=== PATIENT | female | born 1935 | race Caucasian/White ===

== ENCOUNTER 2021-11-08 19:17 | Emergency (ER) | payer MEDICARE, MEDICAID | END 2021-11-08 22:19 | disposition home or self-care (01) | LOC: JD.ED 19:17 | DX: K92.2 Gastrointestinal hemorrhage, unspecified (principal); M54.50 Low back pain, unspecified; D64.9 Anemia, unspecified; I25.10 Atherosclerotic heart disease of native coronary artery without angina pectoris; I11.0 Hypertensive heart disease with heart failure; I50.9 Heart failure, unspecified; K21.9 Gastro-esophageal reflux disease without esophagitis; Z88.5 Allergy status to narcotic agent; Z88.8 Allergy status to other drugs, medicaments and biological substances; Z79.01 Long term (current) use of anticoagulants; Z79.899 Other long term (current) drug therapy | CPT/HCPCS: 36415; 81001; 85014; 85018; 99285 ==

== ENCOUNTER 2021-11-09 09:31 | Inpatient (IN) | payer MEDICARE ==
[2021-11-09] MEDS ORDERED: Sodium Chloride 0.9% 10 ML Syringe FLUSH PRN (10:03)
[2021-11-09] MEDS: Sodium Chloride 0.9% 1,000 ML IV SCH ×2 (10:53→18:19)
[2021-11-09] MEDS ORDERED: Factor IX Complex Human 500 UNIT VIAL IV ONE (12:45)
[2021-11-09] MEDS ORDERED: Ondansetron 4 MG/2 ML SDV IVPUSH ONE (12:55)
[2021-11-09] MEDS ORDERED: HYDROmorphone 0.5 MG/0.5 ML Syringe IVPUSH ONE (12:55)
[2021-11-09] MEDS ORDERED: HYDROmorphone 0.5 MG/0.5 ML Syringe IVPUSH PRN (14:19)
[2021-11-09] MEDS ORDERED: Albuterol 0.083% 2.5 MG/3 ML Neb Soln NEB PRN (14:19)
[2021-11-09] MEDS ORDERED: Albuterol/Ipratropium 3.0-0.5 MG/3 ML Neb Soln NEB PRN (14:19)
[2021-11-09] MEDS ORDERED: Ondansetron 4 MG/2 ML SDV IV PRN (14:19)
[2021-11-09] MEDS ORDERED: Methocarbamol 500 MG Tab PO PRN (15:51)
[2021-11-09] MEDS ORDERED: Pantoprazole 40 MG Vial IVPUSH ONE (16:15)
[2021-11-09] MEDS ORDERED: Propofol 200 MG/20 ML SDV ONE (16:25)
[2021-11-09] MEDS ORDERED: Lactated Ringers 1,000 ML ONE (16:33)
[2021-11-09] MEDS ORDERED: Furosemide 20 MG/2 ML VIAL IVPUSH ONE (17:00)
[2021-11-09] MEDS: Insulin Lispro 100 Unit/ML 3 ML KwikPen SUBCUT SCH ×2 (18:07→22:24)
[2021-11-09] MEDS ORDERED: Pantoprazole 40 MG Vial IVPUSH SCH (21:00)
[2021-11-09] MEDS: Methocarbamol 500 MG Tab PO SCH (21:16)
[2021-11-09] MEDS: Gabapentin 300 MG Cap PO SCH (21:16)
[2021-11-09] MEDS: Nystatin Topical Powder 15 GM Bottle TOP SCH (21:16)
[2021-11-09] MEDS: QUEtiapine 25 MG Tab PO SCH (21:16)
[2021-11-10 00:32] LABS: HEMOGLOBIN A1C 6.7 %
[2021-11-10] MEDS: Levothyroxine 25 MCG Tab PO SCH (07:26)
[2021-11-10] MEDS: Insulin Lispro 100 Unit/ML 3 ML KwikPen SUBCUT SCH ×4 (08:32→21:57)
[2021-11-10] MEDS: Gabapentin 300 MG Cap PO SCH ×3 (08:34→20:29)
[2021-11-10] MEDS: Metoprolol Succinate 50 MG Tab.ER PO SCH (08:34)
[2021-11-10] MEDS: Methocarbamol 500 MG Tab PO SCH ×2 (08:34→20:29)
[2021-11-10] MEDS: QUEtiapine 25 MG Tab PO SCH ×2 (08:34→20:29)
[2021-11-10] MEDS: DULoxetine 30 MG Cap PO SCH (08:36)
[2021-11-10] MEDS: Furosemide 20 MG Tab PO SCH (08:36)
[2021-11-10] MEDS: Nystatin Topical Powder 15 GM Bottle TOP SCH ×2 (08:37→20:29)
[2021-11-10] MEDS: Pantoprazole 40 MG Tab.CR PO SCH (08:40)
[2021-11-10] MEDS ORDERED: fentaNYL 12 MCG/HR Transdermal Patch TRDERM SCH (09:00)
[2021-11-10] MEDS ORDERED: Pantoprazole 40 MG Vial IVPUSH SCH (09:00)
[2021-11-10] MEDS: fentaNYL 12 MCG/HR Transdermal Patch TRDERM SCH (10:11)
[2021-11-10] MEDS ORDERED: Furosemide 20 MG/2 ML VIAL IVPUSH ONE (15:00)
[2021-11-10] MEDS: Acetaminophen 325 MG Tab PO PRN (17:12)
[2021-11-11] MEDS: Levothyroxine 25 MCG Tab PO SCH (06:18)
[2021-11-11] MEDS: Pantoprazole 40 MG Tab.CR PO SCH (06:20)
[2021-11-11] MEDS: Insulin Lispro 100 Unit/ML 3 ML KwikPen SUBCUT SCH ×4 (07:47→21:01)
[2021-11-11] MEDS: Methocarbamol 500 MG Tab PO SCH ×2 (08:04→20:00)
[2021-11-11] MEDS: Gabapentin 300 MG Cap PO SCH ×3 (08:05→20:00)
[2021-11-11] MEDS: DULoxetine 30 MG Cap PO SCH (08:05)
[2021-11-11] MEDS: Furosemide 20 MG Tab PO SCH (08:05)
[2021-11-11] MEDS: Metoprolol Succinate 50 MG Tab.ER PO SCH (08:05)
[2021-11-11] MEDS: QUEtiapine 25 MG Tab PO SCH ×2 (08:05→20:00)
[2021-11-11] MEDS: Nystatin Topical Powder 15 GM Bottle TOP SCH ×2 (08:06→20:00)
[2021-11-11] MEDS ORDERED: Polyethylene Glycol/Electrolytes 4,000 ML Bottle PO ONE (14:50)
[2021-11-11] MEDS: Acetaminophen 325 MG Tab PO PRN (18:14)
[2021-11-12] MEDS: Pantoprazole 40 MG Tab.CR PO SCH ×2 (05:22→08:05)
[2021-11-12] MEDS: Levothyroxine 25 MCG Tab PO SCH ×2 (05:22→08:05)
[2021-11-12] MEDS: Insulin Lispro 100 Unit/ML 3 ML KwikPen SUBCUT SCH ×4 (08:04→22:00)
[2021-11-12] MEDS: Gabapentin 300 MG Cap PO SCH ×3 (09:57→22:36)
[2021-11-12] MEDS: DULoxetine 30 MG Cap PO SCH (09:57)
[2021-11-12] MEDS: Methocarbamol 500 MG Tab PO SCH ×2 (09:57→22:37)
[2021-11-12] MEDS: Nystatin Topical Powder 15 GM Bottle TOP SCH ×2 (09:58→22:38)
[2021-11-12] MEDS: QUEtiapine 25 MG Tab PO SCH ×2 (09:59→22:37)
[2021-11-12] MEDS: Furosemide 20 MG Tab PO SCH (09:59)
[2021-11-12] MEDS: Metoprolol Succinate 50 MG Tab.ER PO SCH (09:59)
[2021-11-12] MEDS ORDERED: fentaNYL 100 MCG/2 ML SDV ONE (15:30)
[2021-11-12] MEDS ORDERED: Propofol 200 MG/20 ML SDV ONE ×2 (15:30→15:55)
[2021-11-12] MEDS ORDERED: Lidocaine 1% 4 ML ONE (15:34)
[2021-11-12] MEDS ORDERED: Bupivacaine 0.5% 30 ML SDV ONE (15:55)
[2021-11-12] MEDS ORDERED: Lactated Ringers 1,000 ML ONE (16:05)
[2021-11-13] MEDS: Levothyroxine 25 MCG Tab PO SCH (07:00)
[2021-11-13] MEDS: Pantoprazole 40 MG Tab.CR PO SCH (07:00)
[2021-11-13] MEDS: Insulin Lispro 100 Unit/ML 3 ML KwikPen SUBCUT SCH ×4 (07:12→21:25)
[2021-11-13] MEDS: Metoprolol Succinate 50 MG Tab.ER PO SCH (08:50)
[2021-11-13] MEDS: Gabapentin 300 MG Cap PO SCH ×3 (08:50→21:24)
[2021-11-13] MEDS: Methocarbamol 500 MG Tab PO SCH ×2 (08:53→21:24)
[2021-11-13] MEDS: Furosemide 20 MG Tab PO SCH (08:53)
[2021-11-13] MEDS: Nystatin Topical Powder 15 GM Bottle TOP SCH ×2 (08:53→21:26)
[2021-11-13] MEDS: QUEtiapine 25 MG Tab PO SCH ×2 (08:54→21:24)
[2021-11-13] MEDS: DULoxetine 30 MG Cap PO SCH (08:54)
[2021-11-13] MEDS: fentaNYL 12 MCG/HR Transdermal Patch TRDERM SCH (09:00)
[2021-11-14] MEDS: Insulin Lispro 100 Unit/ML 3 ML KwikPen SUBCUT SCH (06:16)
[2021-11-14] MEDS: Levothyroxine 25 MCG Tab PO SCH (06:17)
[2021-11-14] MEDS: Pantoprazole 40 MG Tab.CR PO SCH (06:17)
[2021-11-14] MEDS: Furosemide 20 MG Tab PO SCH (08:25)
[2021-11-14] MEDS: DULoxetine 30 MG Cap PO SCH (08:25)
[2021-11-14] MEDS: Gabapentin 300 MG Cap PO SCH (08:25)
[2021-11-14] MEDS: Methocarbamol 500 MG Tab PO SCH (08:25)
[2021-11-14] MEDS: Nystatin Topical Powder 15 GM Bottle TOP SCH (08:26)
[2021-11-14] MEDS: QUEtiapine 25 MG Tab PO SCH (08:26)
[2021-11-14] MEDS: Metoprolol Succinate 50 MG Tab.ER PO SCH (08:26)
== END 2021-11-14 15:45 | disposition home or self-care (01) | DRG 813 ==
LOC: JD.ED 09:31 → JD.ICU 12:43
PROVIDERS: ADMIT Emergency Medicine; ATTEND Family Medicine
PROC: 0DJ08ZZ Inspection of Upper Intestinal Tract, Via Natural or Artificial Opening Endoscopic (ICD-10-PCS; principal; 2021-11-09)
PROC: 30233N1 Transfusion of Nonautologous Red Blood Cells into Peripheral Vein, Percutaneous Approach (ICD-10-PCS; 2021-11-09)
PROC: 0DJD8ZZ Inspection of Lower Intestinal Tract, Via Natural or Artificial Opening Endoscopic (ICD-10-PCS; 2021-11-12)
DX: K92.1 Melena (principal); H35.30 Unspecified macular degeneration; D68.32 Hemorrhagic disorder due to extrinsic circulating anticoagulants; D62 Acute posthemorrhagic anemia; K57.30 Diverticulosis of large intestine without perforation or abscess without bleeding; D64.9 Anemia, unspecified; I11.0 Hypertensive heart disease with heart failure; I50.9 Heart failure, unspecified; M54.9 Dorsalgia, unspecified; G89.29 Other chronic pain; E03.9 Hypothyroidism, unspecified; N32.81 Overactive bladder; Z66 Do not resuscitate; Z20.822 Contact with and (suspected) exposure to COVID-19; K63.5 Polyp of colon; M54.50 Low back pain, unspecified; R41.3 Other amnesia; I44.7 Left bundle-branch block, unspecified; F03.90 Unspecified dementia, unspecified severity, without behavioral disturbance, psychotic disturbance, mood disturbance, and anxiety; Z88.5 Allergy status to narcotic agent; Z79.899 Other long term (current) drug therapy; Z86.718 Personal history of other venous thrombosis and embolism; Z79.01 Long term (current) use of anticoagulants; Z99.81 Dependence on supplemental oxygen; Z86.711 Personal history of pulmonary embolism; Z79.890 Hormone replacement therapy; Z88.8 Allergy status to other drugs, medicaments and biological substances
CPT/HCPCS: 36415; 80053; 85025; 85610; 86850; 86900; 86901; 86922; 93005; 96374; 99285; J7030; U0002; 00731; 00812; 36430; 80048; 82947; 83036; 83735; 85014; 85018; 85027; 93010; 97116-GP; 97161-GP; 99100; 99140; A9270-GY; C9113; J1170; J1815; J1940; J2405; J2704; J3010; J3490; J7120; J7168; P9016

== ENCOUNTER 2021-12-15 15:30 | Inpatient (IN) | payer MEDICARE ==
[2021-12-15] MEDS ORDERED: Sodium Chloride 0.9% 10 ML Syringe FLUSH PRN (15:52)
[2021-12-15] MEDS ORDERED: Ondansetron 4 MG/2 ML SDV IVPUSH ONE (15:52)
[2021-12-15] MEDS ORDERED: Sodium Chloride 0.9% 1,000 ML IV SCH (16:00)
[2021-12-15] MEDS ORDERED: REMDESIVIR 200 MG in Sodium Chloride 0.9% 250 ML IV ONE (19:18)
[2021-12-15] MEDS ORDERED: LORazepam 0.5 MG Tab PO PRN (19:29)
[2021-12-15] MEDS ORDERED: Polyethylene Glycol 3350 Powder 17 GM Packet PO SCH (19:30)
[2021-12-15] MEDS: Dexamethasone 4 MG Tab PO SCH (19:47)
[2021-12-15] MEDS ORDERED: Warfarin 2.5 MG Tab PO ONE (20:00)
[2021-12-15] MEDS: Methocarbamol 500 MG Tab PO SCH (21:38)
[2021-12-15] MEDS: Gabapentin 300 MG Cap PO SCH (21:38)
[2021-12-15] MEDS: QUEtiapine 25 MG Tab PO SCH (21:38)
[2021-12-15] MEDS: fentaNYL 12 MCG/HR Transdermal Patch TRDERM SCH (21:49)
[2021-12-16] MEDS ORDERED: Polyethylene Glycol 3350 Powder 17 GM Packet PO PRN (05:33)
[2021-12-16] MEDS: Levothyroxine 25 MCG Tab PO SCH (05:47)
[2021-12-16] MEDS: Pantoprazole 40 MG Tab.CR PO SCH (05:47)
[2021-12-16] MEDS ORDERED: Sodium Chloride 0.9% 1,000 ML IV SCH (07:45)
[2021-12-16] MEDS: Docusate Sodium 100 MG Cap PO SCH (09:58)
[2021-12-16] MEDS: Metoprolol Succinate 50 MG Tab.ER PO SCH (09:59)
[2021-12-16] MEDS: Dexamethasone 4 MG Tab PO SCH (10:00)
[2021-12-16] MEDS: DULoxetine 30 MG Cap PO SCH (10:00)
[2021-12-16] MEDS: Methocarbamol 500 MG Tab PO SCH ×3 (10:01→21:39)
[2021-12-16] MEDS: Ferrous Sulfate 324 MG Tab.EC PO SCH (10:01)
[2021-12-16] MEDS: QUEtiapine 25 MG Tab PO SCH ×3 (10:01→21:39)
[2021-12-16] MEDS: Gabapentin 300 MG Cap PO SCH ×3 (10:01→21:39)
[2021-12-16] MEDS: Acetaminophen 325 MG Tab PO PRN (11:15)
[2021-12-16] MEDS: Insulin Lispro 100 Unit/ML 3 ML KwikPen SUBCUT SCH ×2 (17:36→21:33)
[2021-12-16] MEDS ORDERED: Warfarin 2.5 MG Tab PO SCH (18:00)
[2021-12-16] MEDS ORDERED: Warfarin 2.5 MG Tab PO ONE (18:30)
[2021-12-16] MEDS: REMDESIVIR 100 MG in Sodium Chloride 0.9% 250 ML IV SCH (19:49)
[2021-12-17] MEDS: Levothyroxine 25 MCG Tab PO SCH (05:22)
[2021-12-17] MEDS: Pantoprazole 40 MG Tab.CR PO SCH (05:22)
[2021-12-17] MEDS: DULoxetine 30 MG Cap PO SCH (08:28)
[2021-12-17] MEDS: QUEtiapine 25 MG Tab PO SCH ×2 (08:28→20:48)
[2021-12-17] MEDS: Insulin Lispro 100 Unit/ML 3 ML KwikPen SUBCUT SCH ×4 (08:28→20:47)
[2021-12-17] MEDS: Metoprolol Succinate 50 MG Tab.ER PO SCH (08:33)
[2021-12-17] MEDS: Dexamethasone 4 MG Tab PO SCH (08:34)
[2021-12-17] MEDS: Methocarbamol 500 MG Tab PO SCH ×2 (08:34→20:48)
[2021-12-17] MEDS: Gabapentin 300 MG Cap PO SCH ×2 (08:35→20:48)
[2021-12-17] MEDS: Docusate Sodium 100 MG Cap PO SCH (08:35)
[2021-12-17] MEDS: Ferrous Sulfate 324 MG Tab.EC PO SCH (10:00)
[2021-12-17] MEDS ORDERED: Warfarin 2.5 MG Tab PO SCH (18:00)
[2021-12-17] MEDS ORDERED: Warfarin 5 MG Tab PO SCH (18:00)
[2021-12-17] MEDS: REMDESIVIR 100 MG in Sodium Chloride 0.9% 250 ML IV SCH (21:02)
[2021-12-18] MEDS: Levothyroxine 25 MCG Tab PO SCH (06:25)
[2021-12-18] MEDS: Pantoprazole 40 MG Tab.CR PO SCH (06:26)
[2021-12-18] MEDS: Metoprolol Succinate 50 MG Tab.ER PO SCH (09:13)
[2021-12-18] MEDS: Docusate Sodium 100 MG Cap PO SCH (09:14)
[2021-12-18] MEDS: Methocarbamol 500 MG Tab PO SCH ×2 (09:14→20:55)
[2021-12-18] MEDS: Gabapentin 300 MG Cap PO SCH ×2 (09:14→20:56)
[2021-12-18] MEDS: Dexamethasone 4 MG Tab PO SCH (09:14)
[2021-12-18] MEDS: QUEtiapine 25 MG Tab PO SCH ×2 (09:15→20:55)
[2021-12-18] MEDS: DULoxetine 30 MG Cap PO SCH (09:15)
[2021-12-18] MEDS: Insulin Lispro 100 Unit/ML 3 ML KwikPen SUBCUT SCH ×4 (09:15→20:57)
[2021-12-18] MEDS: Ferrous Sulfate 324 MG Tab.EC PO SCH (10:09)
[2021-12-18] MEDS: Acetaminophen 325 MG Tab PO PRN (13:37)
[2021-12-18] MEDS ORDERED: Warfarin 5 MG Tab PO SCH (18:00)
[2021-12-18] MEDS: fentaNYL 12 MCG/HR Transdermal Patch TRDERM SCH (20:56)
[2021-12-18] MEDS: REMDESIVIR 100 MG in Sodium Chloride 0.9% 250 ML IV SCH (20:58)
[2021-12-19] MEDS: Pantoprazole 40 MG Tab.CR PO SCH (06:08)
[2021-12-19] MEDS: Levothyroxine 25 MCG Tab PO SCH (06:08)
[2021-12-19] MEDS: Methocarbamol 500 MG Tab PO SCH ×2 (08:08→20:49)
[2021-12-19] MEDS: QUEtiapine 25 MG Tab PO SCH ×2 (08:08→20:49)
[2021-12-19] MEDS: Docusate Sodium 100 MG Cap PO SCH (08:08)
[2021-12-19] MEDS: Dexamethasone 4 MG Tab PO SCH (08:08)
[2021-12-19] MEDS: DULoxetine 30 MG Cap PO SCH (08:08)
[2021-12-19] MEDS: Gabapentin 300 MG Cap PO SCH ×2 (08:08→20:49)
[2021-12-19] MEDS: Metoprolol Succinate 50 MG Tab.ER PO SCH (08:09)
[2021-12-19] MEDS: Insulin Lispro 100 Unit/ML 3 ML KwikPen SUBCUT SCH ×4 (08:09→21:00)
[2021-12-19] MEDS: Tiotropium Bromide 4 GM Inhalation Spray (2.5mcg/1 dose; 10 doses) INH SCH (09:22)
[2021-12-19] MEDS: Ferrous Sulfate 324 MG Tab.EC PO SCH (12:24)
[2021-12-19] MEDS: Acetaminophen 325 MG Tab PO PRN (17:54)
[2021-12-19] MEDS ORDERED: Warfarin 2.5 MG Tab PO SCH (18:00)
[2021-12-19] MEDS ORDERED: Magnesium Hydroxide 400 MG/5 ML Susp 30 ML Cup PO PRN (19:56)
[2021-12-19] MEDS: REMDESIVIR 100 MG in Sodium Chloride 0.9% 250 ML IV SCH ×2 (20:43→22:32)
[2021-12-20] MEDS: Pantoprazole 40 MG Tab.CR PO SCH (06:33)
[2021-12-20] MEDS: Insulin Lispro 100 Unit/ML 3 ML KwikPen SUBCUT SCH ×2 (06:33→12:03)
[2021-12-20] MEDS: Levothyroxine 25 MCG Tab PO SCH (06:33)
[2021-12-20] MEDS: Tiotropium Bromide 4 GM Inhalation Spray (2.5mcg/1 dose; 10 doses) INH SCH (08:40)
[2021-12-20] MEDS: QUEtiapine 25 MG Tab PO SCH (08:47)
[2021-12-20] MEDS: Docusate Sodium 100 MG Cap PO SCH (08:47)
[2021-12-20] MEDS: Gabapentin 300 MG Cap PO SCH (08:47)
[2021-12-20] MEDS: DULoxetine 30 MG Cap PO SCH (08:47)
[2021-12-20] MEDS: Methocarbamol 500 MG Tab PO SCH (08:47)
[2021-12-20] MEDS: Ferrous Sulfate 324 MG Tab.EC PO SCH (12:06)
[2021-12-20] MEDS ORDERED: Warfarin 2.5 MG Tab PO SCH (18:00)
== END 2021-12-20 14:28 | DRG 178 ==
LOC: JD.ED 15:30 → JD.MS 19:05
PROVIDERS: ADMIT Internal Medicine; ATTEND Internal Medicine
PROC: XW033E5 Introduction of Remdesivir Anti-infective into Peripheral Vein, Percutaneous Approach, New Technology Group 5 (ICD-10-PCS; principal; 2021-12-15)
PROC: 3E0DX3Z Introduction of Anti-inflammatory into Mouth and Pharynx, External Approach (ICD-10-PCS; 2021-12-15)
PROC: 8E0ZXY6 Isolation (ICD-10-PCS; 2021-12-15)
DX: N28.9 Disorder of kidney and ureter, unspecified (principal); U07.1 COVID-19; N17.9 Acute kidney failure, unspecified; E46 Unspecified protein-calorie malnutrition; K92.1 Melena; D64.9 Anemia, unspecified; E03.9 Hypothyroidism, unspecified; G89.29 Other chronic pain; F03.90 Unspecified dementia, unspecified severity, without behavioral disturbance, psychotic disturbance, mood disturbance, and anxiety; I95.89 Other hypotension; Z66 Do not resuscitate; I50.9 Heart failure, unspecified; M54.50 Low back pain, unspecified; E86.0 Dehydration; H35.30 Unspecified macular degeneration; I11.0 Hypertensive heart disease with heart failure; I44.7 Left bundle-branch block, unspecified; N32.81 Overactive bladder; M54.9 Dorsalgia, unspecified; Z88.6 Allergy status to analgesic agent; Z99.81 Dependence on supplemental oxygen; Z88.5 Allergy status to narcotic agent; Z79.890 Hormone replacement therapy; Z79.01 Long term (current) use of anticoagulants; Z79.899 Other long term (current) drug therapy; Z68.38 Body mass index [BMI] 38.0-38.9, adult; Z86.718 Personal history of other venous thrombosis and embolism; Z88.8 Allergy status to other drugs, medicaments and biological substances
CPT/HCPCS: 36415; 71045; 80053; 81001; 83605; 83735; 84484; 85025; 85610; 85730; 86140; 86850; 86900; 86901; 87040 ×2; 93005; 96374; 99285; J2405; J7030; U0002; 80048; 82728; 82947; 83540; 83880; 85027; 87641; 93010; 94640; 94762; 97110-GP; 97116-GP; 97162-GP; 97530-GP; A9270-GY; J1815; J2916; J3490; J7050; J8540

== ENCOUNTER 2021-12-24 11:28 | Emergency (ER) | payer MEDICARE | END 2021-12-24 15:41 | disposition home or self-care (01) | LOC: JD.ED 11:28 | DX: S52.615A Nondisplaced fracture of left ulna styloid process, initial encounter for closed fracture (principal); I11.0 Hypertensive heart disease with heart failure; I50.9 Heart failure, unspecified; E03.9 Hypothyroidism, unspecified; E66.9 Obesity, unspecified; Z68.35 Body mass index [BMI] 35.0-35.9, adult; Z79.01 Long term (current) use of anticoagulants; Z79.899 Other long term (current) drug therapy; Z88.5 Allergy status to narcotic agent; Z88.8 Allergy status to other drugs, medicaments and biological substances; W19.XXXA Unspecified fall, initial encounter | CPT/HCPCS: 29125; 36415; 73110-26-LT; 73110-LT; 73130-26-LT; 73130-LT; 85025; 85610; 99283-25 ==

== ENCOUNTER 2022-12-25 12:13 | Inpatient (IN) | payer MEDICARE, OTHER, MEDICAID ==
[2022-12-25] MEDS ORDERED: Sodium Chloride 0.9% 10 ML Syringe FLUSH PRN (12:16)
[2022-12-25] MEDS ORDERED: HYDROmorphone 0.5 MG/0.5 ML Syringe IVPUSH ONE (12:16)
[2022-12-25] MEDS ORDERED: HYDROmorphone 0.5 MG/0.5 ML Syringe IM ONE (12:30)
[2022-12-25] MEDS ORDERED: Ondansetron 4 MG Tab.DIS PO PRN (15:18)
[2022-12-25] MEDS ORDERED: Ondansetron 4 MG/2 ML SDV IV PRN (15:18)
[2022-12-25] MEDS: Acetaminophen/HYDROcodone 325-5 MG Tab PO PRN ×2 (17:32→22:12)
[2022-12-25] MEDS: HYDROmorphone 0.5 MG/0.5 ML Syringe IVPUSH PRN (20:35)
[2022-12-26] MEDS: HYDROmorphone 0.5 MG/0.5 ML Syringe IVPUSH PRN ×6 (03:31→22:10)
[2022-12-26] MEDS ORDERED: HYDROmorphone 1 MG/ML Syringe ONE (11:40)
[2022-12-26] MEDS ORDERED: Lactulose Soln 10 GM/15 ML 30 ML UD Cup PO PRN (15:08)
[2022-12-26] MEDS: Acetaminophen/HYDROcodone 325-5 MG Tab PO PRN ×2 (18:13→23:41)
[2022-12-26] MEDS: QUEtiapine 25 MG Tab PO SCH (20:03)
[2022-12-26] MEDS: Gabapentin 300 MG Cap PO SCH (20:03)
[2022-12-26] MEDS: Fish Oil/Omega-3 Fatty Acids 1 Gm Cap PO SCH (20:03)
[2022-12-27] MEDS: Levothyroxine 25 MCG Tab PO SCH (05:39)
[2022-12-27] MEDS: HYDROmorphone 0.5 MG/0.5 ML Syringe IVPUSH PRN ×3 (05:39→15:29)
[2022-12-27] MEDS: Pantoprazole 40 MG Tab.CR PO SCH (05:39)
[2022-12-27] MEDS ORDERED: Mirabegron 25 MG Tab.Er PO SCH (09:00)
[2022-12-27] MEDS: Metoprolol Succinate 50 MG Tab.ER PO SCH (09:31)
[2022-12-27] MEDS ORDERED: Bupivacaine 0.25% 10 ML SDV ONE (10:03)
[2022-12-27] MEDS: Sodium Chloride 0.9% 10 ML Syringe FLUSH PRN ×2 (10:25→15:30)
[2022-12-27] MEDS ORDERED: Propofol 200 MG/20 ML SDV ONE (10:30)
[2022-12-27] MEDS ORDERED: fentaNYL 100 MCG/2 ML SDV ONE (10:30)
[2022-12-27] MEDS ORDERED: Lidocaine 1% 5 ML VIAL ONE (10:36)
[2022-12-27] MEDS ORDERED: Rocuronium 50 MG/5 ML Vial ONE (10:38)
[2022-12-27] MEDS ORDERED: Lactated Ringers 1,000 ML IV ONE (11:00)
[2022-12-27] MEDS ORDERED: Dexamethasone 4 MG/ML 5 ML MDV ONE (11:45)
[2022-12-27] MEDS ORDERED: ceFAZolin 2 GM Vial ONE (11:48)
[2022-12-27] MEDS ORDERED: Sugammadex Sodium 200 MG/2 ML VIAL ONE (12:13)
[2022-12-27] MEDS ORDERED: Ondansetron 4 MG/2 ML SDV ONE (12:31)
[2022-12-27] MEDS ORDERED: Ondansetron 4 MG/2 ML SDV IVPUSH PRN (12:45)
[2022-12-27] MEDS ORDERED: HYDROmorphone 0.5 MG/0.5 ML Syringe IVPUSH PRN (12:45)
[2022-12-27] MEDS ORDERED: fentaNYL 100 MCG/2 ML SDV IVPUSH PRN (12:45)
[2022-12-27] MEDS: Acetaminophen 325 MG Tab PO PRN (14:33)
[2022-12-27] MEDS: Gabapentin 300 MG Cap PO SCH ×3 (14:34→20:43)
[2022-12-27] MEDS: Lisinopril 20 MG Tab PO SCH (14:58)
[2022-12-27] MEDS: DULoxetine 30 MG Cap PO SCH (15:00)
[2022-12-27] MEDS: QUEtiapine 25 MG Tab PO SCH ×2 (15:06→20:43)
[2022-12-27] MEDS: Fish Oil/Omega-3 Fatty Acids 1 Gm Cap PO SCH ×2 (15:06→20:43)
[2022-12-27] MEDS: Ferrous Sulfate 324 MG Tab.EC PO SCH (15:07)
[2022-12-27] MEDS: Furosemide 20 MG Tab PO SCH (15:33)
[2022-12-27] MEDS: Acetaminophen/HYDROcodone 325-5 MG Tab PO PRN (20:44)
[2022-12-28] MEDS: Acetaminophen/HYDROcodone 325-5 MG Tab PO PRN (03:51)
[2022-12-28] MEDS: Pantoprazole 40 MG Tab.CR PO SCH (06:24)
[2022-12-28] MEDS: Levothyroxine 25 MCG Tab PO SCH (06:24)
[2022-12-28] MEDS ORDERED: Enoxaparin 100 MG/1 ML Syringe SUBCUT SCH (08:00)
[2022-12-28] MEDS: Sodium Chloride 0.9% 1,000 ML IV SCH (08:37)
[2022-12-28] MEDS: DULoxetine 30 MG Cap PO SCH (09:10)
[2022-12-28] MEDS: Fish Oil/Omega-3 Fatty Acids 1 Gm Cap PO SCH ×2 (09:11→20:18)
[2022-12-28] MEDS: QUEtiapine 25 MG Tab PO SCH ×2 (09:15→20:18)
[2022-12-28] MEDS: Ferrous Sulfate 324 MG Tab.EC PO SCH (09:15)
[2022-12-28] MEDS: Lisinopril 20 MG Tab PO SCH (09:15)
[2022-12-28] MEDS: Gabapentin 300 MG Cap PO SCH ×3 (09:15→20:18)
[2022-12-28] MEDS: Metoprolol Succinate 50 MG Tab.ER PO SCH (09:15)
[2022-12-28] MEDS: Furosemide 20 MG Tab PO SCH (09:15)
[2022-12-28] MEDS: Acetaminophen 325 MG Tab PO PRN ×3 (10:51→22:46)
[2022-12-28] MEDS: Enoxaparin 100 MG/1 ML Syringe SUBCUT SCH (12:36)
[2022-12-28] MEDS: Warfarin 5 MG Tab PO SCH (18:18)
[2022-12-28] MEDS: MYRBETRIQ 50 MG PO SCH (18:59)
[2022-12-28] MEDS: Docusate Sodium 100 MG Cap PO PRN (20:18)
[2022-12-29] MEDS: Acetaminophen 325 MG Tab PO PRN ×3 (03:24→20:52)
[2022-12-29] MEDS: Sodium Chloride 0.9% 1,000 ML IV SCH ×2 (03:25→08:40)
[2022-12-29] MEDS: Levothyroxine 25 MCG Tab PO SCH (07:06)
[2022-12-29] MEDS: Pantoprazole 40 MG Tab.CR PO SCH (07:06)
[2022-12-29] MEDS: DULoxetine 30 MG Cap PO SCH (08:19)
[2022-12-29] MEDS: Metoprolol Succinate 50 MG Tab.ER PO SCH (08:19)
[2022-12-29] MEDS: Furosemide 20 MG Tab PO SCH (08:19)
[2022-12-29] MEDS: Gabapentin 300 MG Cap PO SCH ×3 (08:19→20:53)
[2022-12-29] MEDS: Fish Oil/Omega-3 Fatty Acids 1 Gm Cap PO SCH ×2 (08:20→20:52)
[2022-12-29] MEDS: QUEtiapine 25 MG Tab PO SCH ×2 (08:20→20:52)
[2022-12-29] MEDS: Lisinopril 20 MG Tab PO SCH (08:20)
[2022-12-29] MEDS: Ferrous Sulfate 324 MG Tab.EC PO SCH (08:20)
[2022-12-29] MEDS: MYRBETRIQ 50 MG PO SCH (08:21)
[2022-12-29] MEDS: HYDROmorphone 0.5 MG/0.5 ML Syringe IVPUSH PRN ×2 (08:40→16:05)
[2022-12-29] MEDS: Acetaminophen/HYDROcodone 325-5 MG Tab PO PRN ×2 (09:15→23:26)
[2022-12-29] MEDS: Enoxaparin 100 MG/1 ML Syringe SUBCUT SCH (12:34)
[2022-12-29] MEDS: Warfarin 5 MG Tab PO SCH (17:25)
[2022-12-29] MEDS: Docusate Sodium 100 MG Cap PO PRN (23:26)
[2022-12-30] MEDS: Acetaminophen 325 MG Tab PO PRN (04:35)
[2022-12-30] MEDS: Levothyroxine 25 MCG Tab PO SCH ×2 (04:39→06:13)
[2022-12-30] MEDS: Pantoprazole 40 MG Tab.CR PO SCH ×2 (04:39→06:13)
[2022-12-30] MEDS: Lisinopril 20 MG Tab PO SCH (09:01)
[2022-12-30] MEDS: DULoxetine 30 MG Cap PO SCH (09:01)
[2022-12-30] MEDS: Metoprolol Succinate 50 MG Tab.ER PO SCH (09:01)
[2022-12-30] MEDS: Gabapentin 300 MG Cap PO SCH (09:02)
[2022-12-30] MEDS: Acetaminophen/HYDROcodone 325-5 MG Tab PO PRN (09:02)
[2022-12-30] MEDS: Furosemide 20 MG Tab PO SCH (09:03)
[2022-12-30] MEDS: Ferrous Sulfate 324 MG Tab.EC PO SCH (09:03)
[2022-12-30] MEDS: QUEtiapine 25 MG Tab PO SCH (09:03)
[2022-12-30] MEDS: Fish Oil/Omega-3 Fatty Acids 1 Gm Cap PO SCH (09:04)
[2022-12-30] MEDS: MYRBETRIQ 50 MG PO SCH (09:18)
[2022-12-30] MEDS ORDERED: Enoxaparin 100 MG/1 ML Syringe SUBCUT SCH (09:45)
== END 2022-12-30 13:46 | DRG 481 ==
LOC: JD.ED 12:13 → JD.MS 14:04
PROVIDERS: ADMIT Hospitalist; ATTEND Hospitalist
PROC: 0QS604Z Reposition Right Upper Femur with Internal Fixation Device, Open Approach (ICD-10-PCS; principal; 2022-12-26)
DX: S72.141A Displaced intertrochanteric fracture of right femur, initial encounter for closed fracture (principal); I13.0 Hypertensive heart and chronic kidney disease with heart failure and stage 1 through stage 4 chronic kidney disease, or unspecified chronic kidney disease; N18.30 Chronic kidney disease, stage 3 unspecified; Z66 Do not resuscitate; I50.9 Heart failure, unspecified; G89.29 Other chronic pain; M54.9 Dorsalgia, unspecified; N32.81 Overactive bladder; E03.9 Hypothyroidism, unspecified; E11.22 Type 2 diabetes mellitus with diabetic chronic kidney disease; H35.30 Unspecified macular degeneration; E66.9 Obesity, unspecified; D64.9 Anemia, unspecified; F03.90 Unspecified dementia, unspecified severity, without behavioral disturbance, psychotic disturbance, mood disturbance, and anxiety; W18.30XA Fall on same level, unspecified, initial encounter; Y92.89 Other specified places as the place of occurrence of the external cause; Z79.01 Long term (current) use of anticoagulants; Z88.8 Allergy status to other drugs, medicaments and biological substances; Z88.5 Allergy status to narcotic agent; Z86.718 Personal history of other venous thrombosis and embolism; Z79.899 Other long term (current) drug therapy; Z86.711 Personal history of pulmonary embolism; Z68.39 Body mass index [BMI] 39.0-39.9, adult
CPT/HCPCS: 01210; 36410; 36415; 51701; 51702; 70450; 70450-26; 71045; 71045-26; 73502-26-RT; 73502-RT; 76000; 76000-26; 80048; 80053; 85025; 85610; 86850; 86900; 86901; 87340; 87641; 93005; 93010; 94760; 96372; 97110-GP; 97162-GP; 97530-GP; 99100; 99221; 99231; 99239; 99285; A9270-GY; C1713; C1776; J0690; J1100; J1170; J1650; J2405; J2704; J3010; J3490; J7030; J7120; U0002

== ENCOUNTER 2023-05-12 17:24 | Emergency (ER) | payer MEDICARE, MEDICAID ==
[2023-05-12] MEDS ORDERED: Sodium Chloride 0.9% 10 ML Syringe FLUSH PRN (18:24)
[2023-05-12] MEDS ORDERED: Ondansetron 4 MG/2 ML SDV IVPUSH ONE (18:25)
[2023-05-12] MEDS ORDERED: Sodium Chloride 0.9% 1,000 ML IV STA (18:25)
[2023-05-12 19:22] LABS: BASOPHILS ABSOLUTE AUTO 0.02 K/mm3 (0.01-0.08); BASOPHILS PERCENT AUTO 0.2 % (0.1-1.2); HEMATOCRIT 46.3 % (34.1-44.9); HEMOGLOBIN 14.5 gm/dl (11.2-15.7); IMMATURE GRAN ABSOLUTE AUTO 0.02 K/mm3 (0.00-0.10); IMMATURE GRAN PERCENT AUTO 0.2 % (<=1.0); LYMPHOCYTES ABSOLUTE AUTO 2.81 K/mm3 (1.18-3.74); LYMPHOCYTES PERCENT AUTO 28.8 % (19.3-51.7); MEAN CORPUSCULAR HEMOGLOBIN 28.9 pg (25.6-32.2); MEAN CORPUSCULAR HGB CONC 31.3 g/dl (32.2-35.5); MEAN CORPUSCULAR VOLUME 92.4 fl (79.4-94.8); MEAN PLATELET VOLUME 12.2 fl (9.4-12.3); MONOCYTES ABSOLUTE AUTO 1.12 K/mm3 (0.24-0.36); MONOCYTES PERCENT AUTO 11.5 % (4.7-12.5); NEUTROPHILS ABSOLUTE AUTO 5.68 K/mm3 (1.56-6.13); NEUTROPHILS PERCENT AUTO 58.3 % (34.0-71.1); PLATELET COUNT,PLT 148 K/mm3 (182-369); RED BLOOD CELL COUNT 5.01 M/mm3 (3.98-5.22); WHITE BLOOD CELL COUNT,WBC 9.75 K/mm3 (3.98-10.04)
[2023-05-12 19:40] LABS: A/G RATIO 0.7 (1-2); ANION GAP 12.5 (5-15); BILIRUBIN TOTAL 0.2 mg/dL (0.2-1.0); BUN/CREATININE RATIO 31.8 (14-18); C-REACTIVE PROTEIN 2.9 mg/dL (<1.0); CREATININE 1.1 mg/dL (0.55-1.02); EST CRCL DRUG DOSING (CG) 29.04 mL/min; POTASSIUM,K 4.5 mEq/L (3.5-5.1); PROTEIN TOTAL,TP 7.4 g/dl (6.4-8.2)
[2023-05-12 19:42] LABS: CALCIUM 9.4 mg/dL (8.5-10.1)
[2023-05-12] MEDS ORDERED: Iopamidol 612 MG/ML 100 ML Bottle IVPUSH ONE (20:40)
[2023-05-12] MEDS ORDERED: Acetaminophen 325 MG Tab PO ONE (21:29)
[2023-05-12 22:14] LABS: APPEARANCE,URINE CLEAR (Clear); BILIRUBIN,URINE NEGATIVE (Negative); COLOR,URINE YELLOW (Yellow); GLUCOSE,URINE 2+ (Negative); KETONES,URINE NEGATIVE (Negative); LEUKOCYTE ESTERASE,URINE 1+ (Negative); NITRITE,URINE NEGATIVE (Negative); OCCULT BLOOD,URINE NEGATIVE (Negative); PROTEIN,URINE NEGATIVE (Negative); UROBILINOGEN,URINE 0.2 (0.2-1.0)
[2023-05-12 22:20] LABS: RBC,URINE 0-5 /hpf (0-5)
[2023-05-12 22:21] LABS: BACTERIA,URINE MANY /hpf (FEW); MUCUS,URINE FEW /hpf (FEW); SQUAMOUS EPITHELIAL CELLS,UR 0-5 /hpf (0-5)
[2023-05-12] MEDS ORDERED: Cefdinir 300 MG Cap PO ONE (22:24)
== END 2023-05-12 23:46 | disposition home or self-care (01) ==
LOC: JD.ED 17:24
DX: N30.00 Acute cystitis without hematuria (principal); R11.2 Nausea with vomiting, unspecified; E11.9 Type 2 diabetes mellitus without complications; E03.9 Hypothyroidism, unspecified; E66.9 Obesity, unspecified; I11.0 Hypertensive heart disease with heart failure; I50.9 Heart failure, unspecified; Z79.01 Long term (current) use of anticoagulants; Z79.899 Other long term (current) drug therapy; Z88.5 Allergy status to narcotic agent; Z88.8 Allergy status to other drugs, medicaments and biological substances
CPT/HCPCS: 36415; 74177; 80053; 81001; 85025; 86140; 87086; 87088; 87186; 93005; 96361; 96374; 99284; A9270; J2405; J3490; J7030; Q9967; 93010

== ENCOUNTER 2023-12-22 20:06 | Emergency (ER) | payer MEDICARE, MEDICAID ==
[2023-12-22] MEDS: Sodium Chloride 0.9% 10 ML Syringe FLUSH PRN (20:59)
[2023-12-22] MEDS: Sodium Chloride 0.9% 1,000 ML IV STA (21:00)
[2023-12-22] MEDS: Ondansetron 4 MG/2 ML SDV IVPUSH ONE (21:00)
[2023-12-22 21:31] LABS: BASOPHILS PERCENT AUTO 0.3 % (0.0-1.0); EOSINOPHILS ABSOLUTE AUTO 0.1 K/mm3 (0.0-0.4); EOSINOPHILS PERCENT AUTO 0.7 % (0.0-6.0); HEMATOCRIT 52.1 % (37.0-47.0); HEMOGLOBIN 16.6 gm/dl (12.0-16.0); IMMATURE GRAN ABSOLUTE AUTO 0.11 K/mm3 (0.00-0.05); IMMATURE GRAN PERCENT AUTO 0.8 % (0.0-0.4); LYMPHOCYTES ABSOLUTE AUTO 0.8 K/mm3 (1.0-4.8); LYMPHOCYTES PERCENT AUTO 5.6 % (24.0-44.0); MEAN CORPUSCULAR HEMOGLOBIN 30.8 pg (28.0-32.0); MEAN CORPUSCULAR HGB CONC 31.9 g/dl (32.0-36.0); MEAN CORPUSCULAR VOLUME 96.7 fl (83.0-99.0); MEAN PLATELET VOLUME 13.2 fl (9.4-12.3); MONOCYTES ABSOLUTE AUTO 0.9 K/mm3 (0.0-0.8); MONOCYTES PERCENT AUTO 5.9 % (0.0-8.0); NEUTROPHILS ABSOLUTE AUTO 12.6 K/mm3 (1.8-7.7); NEUTROPHILS PERCENT AUTO 86.7 % (41.0-71.0); PLATELET COUNT,PLT 117 K/mm3 (150-400); RED BLOOD CELL COUNT 5.39 M/mm3 (4.10-5.30); WHITE BLOOD CELL COUNT,WBC 14.48 K/mm3 (3.9-11.3)
[2023-12-22 21:55] LABS: LACTIC ACID 1.5 mmol/L (0.4-2.0)
[2023-12-22 22:03] LABS: A/G RATIO 0.8 (1-2); ALBUMIN 3.6 g/dl (3.4-5.0); ANION GAP 16.2 (5-15); BILIRUBIN TOTAL 0.4 mg/dL (0.2-1.0); BUN/CREATININE RATIO 27.3 (14-18); C-REACTIVE PROTEIN 2.03 mg/dL (<0.30); CALCIUM 9.3 mg/dL (8.5-10.1); CREATININE 1.1 mg/dL (0.55-1.02); EST CRCL DRUG DOSING (CG) 29.81 mL/min; POTASSIUM,K 4.2 mEq/L (3.5-5.1); PROTEIN TOTAL,TP 8.3 g/dl (6.4-8.2)
[2023-12-22 22:09] LABS: CORONAVIRUS COVID-19 NAA NEGATIVE (NEGATIVE); INFLUENZA A NAA NEGATIVE (NEGATIVE); RESPIRATORY SYNCYTIAL VIR NAA NEGATIVE (NEGATIVE)
[2023-12-22] MEDS ORDERED: Sodium Chloride 0.9% 100 ML IV SCH (22:30)
[2023-12-22] MEDS: Iopamidol 755 Mg/ML 100 ML Bottle IVPUSH ONE (22:55)
[2023-12-22 23:04] LABS: INR 2.43; PROTHROMBIN TIME 24.3 SECONDS (9.7-12.0)
[2023-12-22 23:37] LABS: APPEARANCE,URINE CLEAR (Clear); BILIRUBIN,URINE NEGATIVE (Negative); COLOR,URINE YELLOW (Yellow); GLUCOSE,URINE 2+ (Negative); KETONES,URINE NEGATIVE (Negative); LEUKOCYTE ESTERASE,URINE NEGATIVE (Negative); NITRITE,URINE NEGATIVE (Negative); OCCULT BLOOD,URINE NEGATIVE (Negative); PH,URINE 5.5 (5.0-8.0); PROTEIN,URINE NEGATIVE (Negative); UROBILINOGEN,URINE 0.2 (0.2-1.0)
[2023-12-22 23:44] LABS: BACTERIA,URINE FEW /hpf (FEW); MUCUS,URINE FEW /hpf (FEW); RBC,URINE 0-5 /hpf (0-5); SQUAMOUS EPITHELIAL CELLS,UR 0-5 /hpf (0-5); WBC,URINE 0-5 /hpf (0-5)
[2023-12-23] MEDS: Doxycycline Monohydrate 100 MG Cap PO ONE (02:01)
== END 2023-12-23 02:13 ==
LOC: JD.ED 20:06
DX: J18.9 Pneumonia, unspecified organism (principal); R09.02 Hypoxemia; I11.0 Hypertensive heart disease with heart failure; I50.9 Heart failure, unspecified; E11.9 Type 2 diabetes mellitus without complications; E03.9 Hypothyroidism, unspecified; Z79.01 Long term (current) use of anticoagulants; Z79.899 Other long term (current) drug therapy; Z88.6 Allergy status to analgesic agent; Z88.5 Allergy status to narcotic agent
CPT/HCPCS: 0241U; 36415; 71045; 71250; 74176; 80053; 81001; 83605; 83690; 83880; 85025; 85379; 85610; 86140; 87493; 96361; 96374; 99284; A9270; C1758; J2405; J3490; J7030

== ENCOUNTER 2024-01-06 20:44 | Inpatient (IN) | payer MEDICARE, MEDICAID ==
[2024-01-06] MEDS: Sodium Chloride 0.9% 500 ML IV ONE ×2 (21:09→22:50)
[2024-01-06 21:11] LABS: BASOPHILS PERCENT AUTO 0.3 % (0.0-1.0); EOSINOPHILS ABSOLUTE AUTO 0.1 K/mm3 (0.0-0.4); EOSINOPHILS PERCENT AUTO 0.5 % (0.0-6.0); HEMATOCRIT 44.6 % (37.0-47.0); HEMOGLOBIN 14.2 gm/dl (12.0-16.0); IMMATURE GRAN ABSOLUTE AUTO 0.11 K/mm3 (0.00-0.05); IMMATURE GRAN PERCENT AUTO 0.9 % (0.0-0.4); LYMPHOCYTES ABSOLUTE AUTO 3.2 K/mm3 (1.0-4.8); LYMPHOCYTES PERCENT AUTO 24.6 % (24.0-44.0); MEAN CORPUSCULAR HEMOGLOBIN 30.5 pg (28.0-32.0); MEAN CORPUSCULAR HGB CONC 31.8 g/dl (32.0-36.0); MEAN CORPUSCULAR VOLUME 95.7 fl (83.0-99.0); MEAN PLATELET VOLUME 12.2 fl (9.4-12.3); MONOCYTES ABSOLUTE AUTO 1.6 K/mm3 (0.0-0.8); MONOCYTES PERCENT AUTO 12.2 % (0.0-8.0); NEUTROPHILS PERCENT AUTO 61.5 % (41.0-71.0); PLATELET COUNT,PLT 181 K/mm3 (150-400); RED BLOOD CELL COUNT 4.66 M/mm3 (4.10-5.30); WHITE BLOOD CELL COUNT,WBC 12.92 K/mm3 (3.9-11.3)
[2024-01-06] MEDS: Albuterol/Ipratropium 3.0-0.5 MG/3 ML Neb Soln NEB ONE (21:32)
[2024-01-06 21:36] LABS: APPEARANCE,URINE CLOUDY (Clear); BILIRUBIN,URINE NEGATIVE (Negative); COLOR,URINE YELLOW (Yellow); GLUCOSE,URINE 1+ (Negative); KETONES,URINE NEGATIVE (Negative); LEUKOCYTE ESTERASE,URINE 3+ (Negative); NITRITE,URINE NEGATIVE (Negative); OCCULT BLOOD,URINE TRACE-INTACT (Negative); PROTEIN,URINE NEGATIVE (Negative); UROBILINOGEN,URINE 0.2 (0.2-1.0)
[2024-01-06 21:42] LABS: A/G RATIO 0.7 (1-2); ALANINE AMINOTRANSFERASE,ALT 27 U/L (14-59); ALBUMIN 3.1 g/dl (3.4-5.0); ALKALINE PHOSPHATASE 83 U/L (46-116); ANION GAP 12.7 (5-15); ASPARTATE AMNIOTRANSFERASE,AST 17 U/L (15-37); BILIRUBIN TOTAL 0.5 mg/dL (0.2-1.0); BLOOD UREA NITROGEN,BUN 28 mg/dL (7-18); BUN/CREATININE RATIO 17.5 (14-18); CALCIUM 9.3 mg/dL (8.5-10.1); CARBON DIOXIDE,CO2 28 mEq/L (21-32); CHLORIDE,CL 95 mEq/L (98-107); CREATININE 1.6 mg/dL (0.55-1.02); ESTIMATED GFR 31 mL/min (>60); GLUCOSE RANDOM 192 mg/dL (70-99); PROTEIN TOTAL,TP 7.6 g/dl (6.4-8.2); SODIUM,NA 130 mEq/L (136-145); TROPONIN I HIGH SENSITIVITY 9 pg/mL (<=51)
[2024-01-06 21:50] LABS: BACTERIA,URINE MODERATE /hpf (FEW); MUCUS,URINE FEW /hpf (FEW); SQUAMOUS EPITHELIAL CELLS,UR 0-5 /hpf (0-5); WBC,URINE 75-100 /hpf (0-5)
[2024-01-06 21:59] LABS: POTASSIUM,K 5.7 mEq/L (3.5-5.1)
[2024-01-06] MEDS: cefTRIAXone 1 GM in Sodium Chloride 0.9% 100 ML IV ONE (22:50)
[2024-01-06] MEDS: Sodium Chloride 0.9% 1,000 ML ONE (22:59)
[2024-01-06] MEDS: Albuterol 0.083% 2.5 MG/3 ML Neb Soln NEB ONE (23:19)
[2024-01-07 01:50] LABS: BLOOD UREA NITROGEN,BUN 29 mg/dL (7-18); BUN/CREATININE RATIO 19.3 (14-18); CALCIUM 8.9 mg/dL (8.5-10.1); CARBON DIOXIDE,CO2 32 mEq/L (21-32); CHLORIDE,CL 97 mEq/L (98-107); CREATININE 1.5 mg/dL (0.55-1.02); ESTIMATED GFR 34 mL/min (>60); GLUCOSE RANDOM 162 mg/dL (70-99); SODIUM,NA 134 mEq/L (136-145)
[2024-01-07] MEDS: Sodium Chloride 0.9% 1,000 ML IV SCH (02:45)
[2024-01-07] MEDS: Acetaminophen 325 MG Tab PO ONE (05:14)
[2024-01-07] MEDS ORDERED: Clotrimazole 1% Crm 30 GM Tube TOP PRN (07:40)
[2024-01-07] MEDS ORDERED: Ondansetron 4 MG Tab.DIS PO PRN (07:40)
[2024-01-07] MEDS ORDERED: Calcium Carbonate 500 MG Tab.Chew PO PRN (07:40)
[2024-01-07] MEDS ORDERED: Melatonin 3 MG Tab PO PRN (07:40)
[2024-01-07] MEDS ORDERED: Nystatin Crm 30 GM Tube TOP PRN (07:40)
[2024-01-07] MEDS ORDERED: Methocarbamol 500 MG Tab PO PRN (07:40)
[2024-01-07] MEDS ORDERED: Lactulose Soln 10 GM/15 ML 30 ML UD Cup PO PRN (08:05)
[2024-01-07] MEDS ORDERED: Benzocaine 20% Dental Gel 30 GM Jar MUCMEM PRN (08:07)
[2024-01-07] MEDS: prednisoLONE Acetate 1% Ophth Susp 5 ML Bottle EYELF SCH (08:49)
[2024-01-07] MEDS: Polyethylene Glycol 3350 Powder 17 GM Packet PO SCH (08:49)
[2024-01-07 08:50] LABS: INR 1.7; PROTHROMBIN TIME 17.5 SECONDS (9.7-12.0)
[2024-01-07] MEDS: Methocarbamol 500 MG Tab PO SCH (08:51)
[2024-01-07] MEDS: Empagliflozin 10 MG Tab PO SCH (08:51)
[2024-01-07] MEDS: QUEtiapine 25 MG Tab PO SCH (08:51)
[2024-01-07] MEDS: Acetaminophen 325 MG Tab PO SCH (08:51)
[2024-01-07] MEDS: Furosemide 20 MG Tab PO SCH (08:52)
[2024-01-07] MEDS: Fish Oil/Omega-3 Fatty Acids 1 Gm Cap PO SCH (08:52)
[2024-01-07] MEDS: Mirabegron 25 MG Tab Extended Release PO SCH (08:52)
[2024-01-07] MEDS: Ferrous Sulfate 324 MG Tab.EC PO SCH (08:52)
[2024-01-07] MEDS: Docusate Sodium 100 MG Cap PO SCH (08:52)
[2024-01-07] MEDS: Metoprolol Succinate 50 MG Tab.ER PO SCH (11:03)
[2024-01-07] MEDS: Lisinopril 20 MG Tab PO SCH (11:03)
[2024-01-07] MEDS: Levothyroxine 50 MCG Tab PO SCH (11:11)
[2024-01-07] MEDS: Gabapentin 300 MG Cap PO SCH (12:13)
[2024-01-07] MEDS: Warfarin 4 MG Tab PO SCH (18:00)
[2024-01-07] MEDS: Insulin Regular, Human 100 Units/ML 3 ML Vial SUBCUT SCH (18:01)
[2024-01-07] MEDS: Gabapentin 600 MG Tab PO SCH (20:37)
[2024-01-07] MEDS: cefTRIAXone 2 GM in Sodium Chloride 0.9% 100 ML IV SCH (20:54)
[2024-01-07] MEDS ORDERED: Albuterol 0.083% 2.5 MG/3 ML Neb Soln NEB ONE (22:53)
[2024-01-08] MEDS: Pantoprazole 40 MG Tab.CR PO SCH (05:54)
[2024-01-08 07:41] LABS: BASOPHILS PERCENT AUTO 0.4 % (0.0-1.0); EOSINOPHILS ABSOLUTE AUTO 0.1 K/mm3 (0.0-0.4); EOSINOPHILS PERCENT AUTO 1.6 % (0.0-6.0); HEMOGLOBIN 13.7 gm/dl (12.0-16.0); IMMATURE GRAN ABSOLUTE AUTO 0.04 K/mm3 (0.00-0.05); IMMATURE GRAN PERCENT AUTO 0.5 % (0.0-0.4); LYMPHOCYTES PERCENT AUTO 24.5 % (24.0-44.0); MEAN CORPUSCULAR HEMOGLOBIN 30.6 pg (28.0-32.0); MEAN CORPUSCULAR HGB CONC 31.1 g/dl (32.0-36.0); MEAN CORPUSCULAR VOLUME 98.2 fl (83.0-99.0); MEAN PLATELET VOLUME 12.4 fl (9.4-12.3); MONOCYTES ABSOLUTE AUTO 0.8 K/mm3 (0.0-0.8); MONOCYTES PERCENT AUTO 9.2 % (0.0-8.0); NEUTROPHILS ABSOLUTE AUTO 5.3 K/mm3 (1.8-7.7); NEUTROPHILS PERCENT AUTO 63.8 % (41.0-71.0); PLATELET COUNT,PLT 134 K/mm3 (150-400); RED BLOOD CELL COUNT 4.48 M/mm3 (4.10-5.30); WHITE BLOOD CELL COUNT,WBC 8.26 K/mm3 (3.9-11.3)
[2024-01-08 08:05] LABS: A/G RATIO 0.6 (1-2); ALBUMIN 2.5 g/dl (3.4-5.0); ANION GAP 12.3 (5-15); BILIRUBIN TOTAL 0.4 mg/dL (0.2-1.0); CALCIUM 8.7 mg/dL (8.5-10.1); CREATININE 0.9 mg/dL (0.55-1.02); EST CRCL DRUG DOSING (CG) 34.83 mL/min; POTASSIUM,K 4.3 mEq/L (3.5-5.1); PROTEIN TOTAL,TP 6.7 g/dl (6.4-8.2)
[2024-01-08] MEDS: fentaNYL 12 MCG/HR Transdermal Patch TRDERM SCH (22:53)
[2024-01-09 05:39] LABS: BASOPHILS PERCENT AUTO 0.4 % (0.0-1.0); EOSINOPHILS ABSOLUTE AUTO 0.1 K/mm3 (0.0-0.4); EOSINOPHILS PERCENT AUTO 1.8 % (0.0-6.0); HEMATOCRIT 40.8 % (37.0-47.0); HEMOGLOBIN 12.8 gm/dl (12.0-16.0); IMMATURE GRAN ABSOLUTE AUTO 0.04 K/mm3 (0.00-0.05); IMMATURE GRAN PERCENT AUTO 0.6 % (0.0-0.4); LYMPHOCYTES ABSOLUTE AUTO 2.3 K/mm3 (1.0-4.8); LYMPHOCYTES PERCENT AUTO 33.6 % (24.0-44.0); MEAN CORPUSCULAR HEMOGLOBIN 29.9 pg (28.0-32.0); MEAN CORPUSCULAR HGB CONC 31.4 g/dl (32.0-36.0); MEAN CORPUSCULAR VOLUME 95.3 fl (83.0-99.0); MEAN PLATELET VOLUME 12.1 fl (9.4-12.3); MONOCYTES ABSOLUTE AUTO 0.8 K/mm3 (0.0-0.8); MONOCYTES PERCENT AUTO 11.1 % (0.0-8.0); NEUTROPHILS ABSOLUTE AUTO 3.6 K/mm3 (1.8-7.7); NEUTROPHILS PERCENT AUTO 52.5 % (41.0-71.0); PLATELET COUNT,PLT 138 K/mm3 (150-400); RED BLOOD CELL COUNT 4.28 M/mm3 (4.10-5.30); WHITE BLOOD CELL COUNT,WBC 6.82 K/mm3 (3.9-11.3)
[2024-01-09 05:52] LABS: A/G RATIO 0.6 (1-2); ALBUMIN 2.4 g/dl (3.4-5.0); ANION GAP 12.2 (5-15); BILIRUBIN TOTAL 0.3 mg/dL (0.2-1.0); BUN/CREATININE RATIO 17.8 (14-18); CALCIUM 8.7 mg/dL (8.5-10.1); CREATININE 0.9 mg/dL (0.55-1.02); EST CRCL DRUG DOSING (CG) 34.83 mL/min; POTASSIUM,K 4.2 mEq/L (3.5-5.1); PROTEIN TOTAL,TP 6.4 g/dl (6.4-8.2)
[2024-01-09 06:10] LABS: INR 1.55; PROTHROMBIN TIME 16.1 SECONDS (9.7-12.0)
== END 2024-01-09 13:00 | DRG 690 ==
LOC: JD.ED 20:44 → JD.MS 01-07 07:34
PROVIDERS: ADMIT Internal Medicine; ATTEND Internal Medicine
DX: N30.01 Acute cystitis with hematuria (principal); E87.1 Hypo-osmolality and hyponatremia; I13.0 Hypertensive heart and chronic kidney disease with heart failure and stage 1 through stage 4 chronic kidney disease, or unspecified chronic kidney disease; N30.00 Acute cystitis without hematuria; I11.0 Hypertensive heart disease with heart failure; N17.9 Acute kidney failure, unspecified; E11.9 Type 2 diabetes mellitus without complications; I50.9 Heart failure, unspecified; E03.9 Hypothyroidism, unspecified; Z88.6 Allergy status to analgesic agent; E66.9 Obesity, unspecified; E87.5 Hyperkalemia; E86.0 Dehydration; N18.32 Chronic kidney disease, stage 3b; D63.1 Anemia in chronic kidney disease; G89.29 Other chronic pain; M54.9 Dorsalgia, unspecified; M54.50 Low back pain, unspecified; Z88.5 Allergy status to narcotic agent; Z79.01 Long term (current) use of anticoagulants; Z99.81 Dependence on supplemental oxygen; Z79.890 Hormone replacement therapy; Z79.899 Other long term (current) drug therapy
CPT/HCPCS: 36415 ×2; 71045; 80048; 80053; 81001; 83036; 83880; 84484; 85025; 87086; 87088; 87186; 93005; 94640 ×2; A9270; C1758; J0696; J3490; J7030 ×3; 82947; 83605; 85610; 87040; 87641; 93010; 94760; 94761; 97161-GP; 97530-GP; 99285; J1815-GY; J7620-GY

== ENCOUNTER 2025-05-22 13:50 | Inpatient (IN) | payer MEDICARE, MEDICAID ==
[2025-05-22] MEDS ORDERED: Sodium Chloride 0.9% 10 ML Syringe FLUSH PRN ×2 (14:20→16:28)
[2025-05-22 15:44] LABS: BASOPHILS ABSOLUTE AUTO 0.1 K/mm3 (0.0-0.2); BASOPHILS PERCENT AUTO 0.4 % (0.0-1.0); EOSINOPHILS ABSOLUTE AUTO 0.1 K/mm3 (0.0-0.4); EOSINOPHILS PERCENT AUTO 0.5 % (0.0-6.0); IMMATURE GRAN ABSOLUTE AUTO 0.17 K/mm3 (0.00-0.05); IMMATURE GRAN PERCENT AUTO 1.2 % (0.0-0.4); LYMPHOCYTES ABSOLUTE AUTO 3.2 K/mm3 (1.0-4.8); LYMPHOCYTES PERCENT AUTO 21.8 % (24.0-44.0); MEAN PLATELET VOLUME 11.3 fl (9.4-12.3); MONOCYTES ABSOLUTE AUTO 2.0 K/mm3 (0.0-0.8); MONOCYTES PERCENT AUTO 14.0 % (0.0-8.0); NEUTROPHILS ABSOLUTE AUTO 9.0 K/mm3 (1.8-7.7); NEUTROPHILS PERCENT AUTO 62.1 % (41.0-71.0); NRBC ABSOLUTE 0.02 (0.00-0.02); NRBC PERCENT 0.1 % (0.0-0.2); PLATELET COUNT,PLT 169 K/mm3 (150-400); RED BLOOD CELL COUNT 4.26 M/mm3 (4.10-5.30); WHITE BLOOD CELL COUNT,WBC 14.43 K/mm3 (3.9-11.3)
[2025-05-22 16:10] LABS: A/G RATIO 0.5 (1-2); ALANINE AMINOTRANSFERASE,ALT 28 U/L (14-59); ASPARTATE AMNIOTRANSFERASE,AST 26 U/L (15-37); BILIRUBIN TOTAL 0.6 mg/dL (0.2-1.0); BLOOD UREA NITROGEN,BUN 39 mg/dL (7-18); CARBON DIOXIDE,CO2 30 mEq/L (21-32); CHLORIDE,CL 96 mEq/L (98-107); CREATININE 1.7 mg/dL (0.55-1.02); ESTIMATED GFR 29 mL/min (>60); GLUCOSE RANDOM 174 mg/dL (70-99); PROTEIN TOTAL,TP 7.8 g/dl (6.4-8.2); SODIUM,NA 130 mEq/L (136-145)
[2025-05-22 16:14] LABS: POTASSIUM,K 6.1 mEq/L (3.5-5.1)
[2025-05-22] MEDS: Albuterol 0.083% 2.5 MG/3 ML Neb Soln NEB ONE (16:51)
[2025-05-22] MEDS: 50% Dextrose in Water 50 ML Syringe IVPUSH ONE (17:25)
[2025-05-22] MEDS: Insulin Regular, Human 100 Units/ML 10 ML Vial SUBCUT ONE (17:31)
[2025-05-22] MEDS: Insulin Regular, Human 100 Units/ML 10 ML Vial IV ONE (17:33)
[2025-05-22 17:34] LABS: INR 1.97
[2025-05-22] MEDS: Calcium Gluconate 10% 1 GM/10 ML SDV IVPUSH ONE (17:34)
[2025-05-22 17:42] LABS: LACTIC ACID 1.0 mmol/L (0.4-2.0)
[2025-05-22] MEDS ORDERED: 50% Dextrose in Water 50 ML Syringe IVPUSH PRN (18:12)
[2025-05-22] MEDS ORDERED: Sennosides/Docusate Sodium 50-8.6 MG Tab PO PRN (18:13)
[2025-05-22] MEDS ORDERED: Naloxone 0.4 MG/ML SDV IVPUSH PRN (18:13)
[2025-05-22] MEDS ORDERED: Ondansetron 4 MG Tab.DIS PO PRN (18:13)
[2025-05-22 18:43] LABS: APPEARANCE,URINE CLOUDY (Clear); GLUCOSE,URINE 3+ (Negative); OCCULT BLOOD,URINE 2+ (Negative)
[2025-05-22 18:57] LABS: TSH 1.597 uIU/mL (0.358-3.74)
[2025-05-22] MEDS ORDERED: Warfarin** 1 MG TABLET PO ONE (19:00)
[2025-05-22 19:41] LABS: SQUAMOUS EPITHELIAL CELLS,UR NOT SEEN /hpf (0-5); YEAST,URINE FEW (NOT SEEN)
[2025-05-22 19:57] LABS: CORONAVIRUS COVID-19 NAA NEGATIVE (NEGATIVE); INFLUENZA A NAA NEGATIVE (NEGATIVE); RESPIRATORY SYNCYTIAL VIR NAA NEGATIVE (NEGATIVE)
[2025-05-22 20:39] LABS: BLOOD UREA NITROGEN,BUN 38 mg/dL (7-18); CARBON DIOXIDE,CO2 29 mEq/L (21-32); CHLORIDE,CL 100 mEq/L (98-107); CREATININE 1.5 mg/dL (0.55-1.02); ESTIMATED GFR 33 mL/min (>60); GLUCOSE RANDOM 149 mg/dL (70-99); SODIUM,NA 135 mEq/L (136-145)
[2025-05-22 20:44] LABS: POTASSIUM,K 5.6 mEq/L (3.5-5.1)
[2025-05-22] MEDS: Warfarin** 1 MG TABLET PO ONE (21:45)
[2025-05-22] MEDS: Insulin Lispro 100 Unit/ML 3 ML KwikPen SUBCUT SCH (22:07)
[2025-05-23] MEDS: Insulin Regular, Human 100 Units/ML 10 ML Vial IV ONE (00:15)
[2025-05-23] MEDS: 50% Dextrose in Water 50 ML Syringe IVPUSH ONE (00:15)
[2025-05-23 05:51] LABS: BASOPHILS ABSOLUTE AUTO 0.0 K/mm3 (0.0-0.2); BASOPHILS PERCENT AUTO 0.2 % (0.0-1.0); EOSINOPHILS ABSOLUTE AUTO 0.0 K/mm3 (0.0-0.4); EOSINOPHILS PERCENT AUTO 0.1 % (0.0-6.0); IMMATURE GRAN ABSOLUTE AUTO 0.16 K/mm3 (0.00-0.05); IMMATURE GRAN PERCENT AUTO 1.1 % (0.0-0.4); LYMPHOCYTES ABSOLUTE AUTO 1.9 K/mm3 (1.0-4.8); LYMPHOCYTES PERCENT AUTO 13.5 % (24.0-44.0); MEAN PLATELET VOLUME 11.4 fl (9.4-12.3); MONOCYTES ABSOLUTE AUTO 1.6 K/mm3 (0.0-0.8); MONOCYTES PERCENT AUTO 11.1 % (0.0-8.0); NEUTROPHILS ABSOLUTE AUTO 10.3 K/mm3 (1.8-7.7); NEUTROPHILS PERCENT AUTO 74.0 % (41.0-71.0); NRBC ABSOLUTE 0.00 (0.00-0.02); NRBC PERCENT 0.0 % (0.0-0.2); PLATELET COUNT,PLT 118 K/mm3 (150-400); RED BLOOD CELL COUNT 3.79 M/mm3 (4.10-5.30); WHITE BLOOD CELL COUNT,WBC 13.96 K/mm3 (3.9-11.3)
[2025-05-23 06:01] LABS: INR 1.92
[2025-05-23 06:08] LABS: A/G RATIO 0.5 (1-2); ALANINE AMINOTRANSFERASE,ALT 25 U/L (14-59); ASPARTATE AMNIOTRANSFERASE,AST 25 U/L (15-37); BILIRUBIN TOTAL 0.5 mg/dL (0.2-1.0); BLOOD UREA NITROGEN,BUN 29 mg/dL (7-18); CARBON DIOXIDE,CO2 27 mEq/L (21-32); CHLORIDE,CL 102 mEq/L (98-107); CREATININE 1.0 mg/dL (0.55-1.02); EST CRCL DRUG DOSING (CG) 33.58 mL/min; ESTIMATED GFR 54 mL/min (>60); GLUCOSE RANDOM 164 mg/dL (70-99); PHOSPHORUS 3.2 mg/dL (2.6-4.7); POTASSIUM,K 4.7 mEq/L (3.5-5.1); PROTEIN TOTAL,TP 7.2 g/dl (6.4-8.2); SODIUM,NA 139 mEq/L (136-145)
[2025-05-23] MEDS: Ferrous Sulfate 324 MG Tab.EC PO SCH (08:58)
[2025-05-23] MEDS: Mirabegron 25 MG Tab Extended Release PO SCH (08:59)
[2025-05-24 05:38] LABS: BASOPHILS ABSOLUTE AUTO 0.0 K/mm3 (0.0-0.2); BASOPHILS PERCENT AUTO 0.3 % (0.0-1.0); EOSINOPHILS ABSOLUTE AUTO 0.1 K/mm3 (0.0-0.4); EOSINOPHILS PERCENT AUTO 0.6 % (0.0-6.0); IMMATURE GRAN ABSOLUTE AUTO 0.14 K/mm3 (0.00-0.05); IMMATURE GRAN PERCENT AUTO 1.3 % (0.0-0.4); LYMPHOCYTES ABSOLUTE AUTO 1.8 K/mm3 (1.0-4.8); LYMPHOCYTES PERCENT AUTO 17.3 % (24.0-44.0); MEAN PLATELET VOLUME 11.7 fl (9.4-12.3); MONOCYTES ABSOLUTE AUTO 1.6 K/mm3 (0.0-0.8); MONOCYTES PERCENT AUTO 15.5 % (0.0-8.0); NEUTROPHILS ABSOLUTE AUTO 6.8 K/mm3 (1.8-7.7); NEUTROPHILS PERCENT AUTO 65.0 % (41.0-71.0); NRBC ABSOLUTE 0.00 (0.00-0.02); NRBC PERCENT 0.0 % (0.0-0.2); PLATELET COUNT,PLT 153 K/mm3 (150-400); RED BLOOD CELL COUNT 3.69 M/mm3 (4.10-5.30); WHITE BLOOD CELL COUNT,WBC 10.43 K/mm3 (3.9-11.3)
[2025-05-24 06:12] LABS: BLOOD UREA NITROGEN,BUN 24 mg/dL (7-18); CARBON DIOXIDE,CO2 29 mEq/L (21-32); CHLORIDE,CL 103 mEq/L (98-107); CREATININE 0.9 mg/dL (0.55-1.02); EST CRCL DRUG DOSING (CG) 37.31 mL/min; ESTIMATED GFR 61 mL/min (>60); GLUCOSE RANDOM 170 mg/dL (70-99); POTASSIUM,K 4.6 mEq/L (3.5-5.1); SODIUM,NA 139 mEq/L (136-145)
[2025-05-24 10:53] LABS: INR 2.61
[2025-05-24] MEDS: Warfarin** 1 MG TABLET PO SCH (17:22)
[2025-05-25 07:14] LABS: BASOPHILS ABSOLUTE AUTO 0.0 K/mm3 (0.0-0.2); BASOPHILS PERCENT AUTO 0.4 % (0.0-1.0); EOSINOPHILS ABSOLUTE AUTO 0.2 K/mm3 (0.0-0.4); EOSINOPHILS PERCENT AUTO 2.4 % (0.0-6.0); IMMATURE GRAN ABSOLUTE AUTO 0.09 K/mm3 (0.00-0.05); IMMATURE GRAN PERCENT AUTO 1.2 % (0.0-0.4); LYMPHOCYTES ABSOLUTE AUTO 1.7 K/mm3 (1.0-4.8); LYMPHOCYTES PERCENT AUTO 23.6 % (24.0-44.0); MEAN PLATELET VOLUME 11.4 fl (9.4-12.3); MONOCYTES ABSOLUTE AUTO 1.0 K/mm3 (0.0-0.8); MONOCYTES PERCENT AUTO 13.8 % (0.0-8.0); NEUTROPHILS ABSOLUTE AUTO 4.3 K/mm3 (1.8-7.7); NEUTROPHILS PERCENT AUTO 58.6 % (41.0-71.0); NRBC ABSOLUTE 0.00 (0.00-0.02); NRBC PERCENT 0.0 % (0.0-0.2); PLATELET COUNT,PLT 170 K/mm3 (150-400); RED BLOOD CELL COUNT 3.41 M/mm3 (4.10-5.30); WHITE BLOOD CELL COUNT,WBC 7.38 K/mm3 (3.9-11.3)
[2025-05-25 07:32] LABS: INR 3.53
[2025-05-25 07:35] LABS: BLOOD UREA NITROGEN,BUN 18 mg/dL (7-18); CARBON DIOXIDE,CO2 29 mEq/L (21-32); CHLORIDE,CL 105 mEq/L (98-107); CREATININE 0.8 mg/dL (0.55-1.02); EST CRCL DRUG DOSING (CG) 41.97 mL/min; ESTIMATED GFR 71 mL/min (>60); GLUCOSE RANDOM 169 mg/dL (70-99); POTASSIUM,K 3.9 mEq/L (3.5-5.1); SODIUM,NA 139 mEq/L (136-145)
[2025-05-25] MEDS: Oxybutynin 5 MG Tab.ER PO SCH (09:04)
[2025-05-25] MEDS: Phenazopyridine 95 MG Tab PO SCH (11:13)
[2025-05-25] MEDS: Warfarin Sliding Scale PO SCH (17:27)
[2025-05-26 04:44] LABS: BASOPHILS ABSOLUTE AUTO 0.0 K/mm3 (0.0-0.2); BASOPHILS PERCENT AUTO 0.4 % (0.0-1.0); EOSINOPHILS ABSOLUTE AUTO 0.3 K/mm3 (0.0-0.4); EOSINOPHILS PERCENT AUTO 3.9 % (0.0-6.0); IMMATURE GRAN ABSOLUTE AUTO 0.10 K/mm3 (0.00-0.05); IMMATURE GRAN PERCENT AUTO 1.4 % (0.0-0.4); LYMPHOCYTES ABSOLUTE AUTO 2.3 K/mm3 (1.0-4.8); LYMPHOCYTES PERCENT AUTO 32.8 % (24.0-44.0); MEAN PLATELET VOLUME 10.9 fl (9.4-12.3); MONOCYTES ABSOLUTE AUTO 0.9 K/mm3 (0.0-0.8); MONOCYTES PERCENT AUTO 13.4 % (0.0-8.0); NEUTROPHILS ABSOLUTE AUTO 3.4 K/mm3 (1.8-7.7); NEUTROPHILS PERCENT AUTO 48.1 % (41.0-71.0); NRBC ABSOLUTE 0.00 (0.00-0.02); NRBC PERCENT 0.0 % (0.0-0.2); PLATELET COUNT,PLT 203 K/mm3 (150-400); RED BLOOD CELL COUNT 3.31 M/mm3 (4.10-5.30); WHITE BLOOD CELL COUNT,WBC 6.99 K/mm3 (3.9-11.3)
[2025-05-26 04:57] LABS: INR 3.3
[2025-05-26 05:16] LABS: BLOOD UREA NITROGEN,BUN 13.0 mg/dL (7-18); CARBON DIOXIDE,CO2 30.0 mEq/L (21-32); CHLORIDE,CL 105.0 mEq/L (98-107); CREATININE 0.8 mg/dL (0.55-1.02); EST CRCL DRUG DOSING (CG) 41.97 mL/min; ESTIMATED GFR 71.0 mL/min (>60); GLUCOSE RANDOM 165.0 mg/dL (70-99); POTASSIUM,K 4.1 mEq/L (3.5-5.1); SODIUM,NA 140.0 mEq/L (136-145)
[2025-05-26] MEDS: Menthol 10%/Methyl Salicylate 30% 85 GM Tube TOP PRN (09:12)
[2025-05-26] MEDS ORDERED: Warfarin** 1 MG TABLET PO SCH (18:00)
== END 2025-05-26 11:45 | DRG 871 ==
LOC: JD.ED 13:50 → JD.MS 17:32 → JD.ICU 17:32
PROVIDERS: ADMIT Student in an Organized Health Care Education/Training Program; ATTEND Family Medicine
PROC: 05HD33Z Insertion of Infusion Device into Right Cephalic Vein, Percutaneous Approach (ICD-10-PCS; principal; 2025-05-22)
PROC: 3E03329 Introduction of Other Anti-infective into Peripheral Vein, Percutaneous Approach (ICD-10-PCS; 2025-05-22)
DX: A41.59 Other Gram-negative sepsis (principal); E87.0 Hyperosmolality and hypernatremia; G93.41 Metabolic encephalopathy; N18.9 Chronic kidney disease, unspecified; J18.9 Pneumonia, unspecified organism; J96.21 Acute and chronic respiratory failure with hypoxia; N17.9 Acute kidney failure, unspecified; E87.1 Hypo-osmolality and hyponatremia; N39.0 Urinary tract infection, site not specified; Z66 Do not resuscitate; Z68.38 Body mass index [BMI] 38.0-38.9, adult; Z79.890 Hormone replacement therapy; Z88.5 Allergy status to narcotic agent; Z88.6 Allergy status to analgesic agent; R65.20 Severe sepsis without septic shock; E87.5 Hyperkalemia; E11.9 Type 2 diabetes mellitus without complications; I11.0 Hypertensive heart disease with heart failure; I50.9 Heart failure, unspecified; F03.90 Unspecified dementia, unspecified severity, without behavioral disturbance, psychotic disturbance, mood disturbance, and anxiety; E66.9 Obesity, unspecified; E78.5 Hyperlipidemia, unspecified; E03.9 Hypothyroidism, unspecified; D50.9 Iron deficiency anemia, unspecified; K21.9 Gastro-esophageal reflux disease without esophagitis; N32.81 Overactive bladder; Z79.01 Long term (current) use of anticoagulants; Z86.711 Personal history of pulmonary embolism; Z87.81 Personal history of (healed) traumatic fracture; Z99.81 Dependence on supplemental oxygen; Z88.8 Allergy status to other drugs, medicaments and biological substances; Z79.899 Other long term (current) drug therapy; Z79.84 Long term (current) use of oral hypoglycemic drugs; Z79.52 Long term (current) use of systemic steroids
CPT/HCPCS: 36415; 70450; 71045; 72125; 80053; 83605; 84443; 85025; 85610; 86140; 87040; 87077; 87154; 87186; 93005; 94640; 96374; 99285; A9270; J1815; 36410; 80048; 81001; 82947; 83735; 83880; 84100; 87086; 87088; 87637; 87641; 93010; 94760; 94761; 97162-GP; 97166-GO; 97530-GP; 97535-GO; 99223; 99232; 99233; 99239; C1758; J0456; J0612; J0696; J1171; J2270; J7030; J7050

== ENCOUNTER 2025-06-16 08:40 | Inpatient (IN) | payer MEDICARE, MEDICAID ==
[2025-06-16] MEDS ORDERED: Sodium Chloride 0.9% 10 ML Syringe FLUSH PRN (09:25)
[2025-06-16 10:01] LABS: BASOPHILS ABSOLUTE AUTO 0.1 K/mm3 (0.0-0.2); BASOPHILS PERCENT AUTO 0.4 % (0.0-1.0); EOSINOPHILS ABSOLUTE AUTO 0.1 K/mm3 (0.0-0.4); EOSINOPHILS PERCENT AUTO 0.9 % (0.0-6.0); IMMATURE GRAN ABSOLUTE AUTO 0.32 K/mm3 (0.00-0.05); IMMATURE GRAN PERCENT AUTO 2.2 % (0.0-0.4); LYMPHOCYTES ABSOLUTE AUTO 4.3 K/mm3 (1.0-4.8); LYMPHOCYTES PERCENT AUTO 28.8 % (24.0-44.0); MEAN PLATELET VOLUME 11.1 fl (9.4-12.3); MONOCYTES ABSOLUTE AUTO 1.4 K/mm3 (0.0-0.8); MONOCYTES PERCENT AUTO 9.3 % (0.0-8.0); NEUTROPHILS ABSOLUTE AUTO 8.6 K/mm3 (1.8-7.7); NEUTROPHILS PERCENT AUTO 58.4 % (41.0-71.0); NRBC ABSOLUTE 0.06 (0.00-0.02); NRBC PERCENT 0.4 % (0.0-0.2); PLATELET COUNT,PLT 252 K/mm3 (150-400); RED BLOOD CELL COUNT 4.35 M/mm3 (4.10-5.30); WHITE BLOOD CELL COUNT,WBC 14.77 K/mm3 (3.9-11.3)
[2025-06-16 10:14] LABS: PTT,PARTIAL THROMBOPLSTIN TIME 60.2 SECONDS (21.7-31.4)
[2025-06-16 10:29] LABS: LACTIC ACID 1.1 mmol/L (0.4-2.0)
[2025-06-16] MEDS: fentaNYL 100 MCG/2 ML SDV IVPUSH ONE ×2 (10:55→13:04)
[2025-06-16 11:43] LABS: A/G RATIO 0.5 (1-2); ALANINE AMINOTRANSFERASE,ALT 20 U/L (14-59); ASPARTATE AMNIOTRANSFERASE,AST 22 U/L (15-37); BILIRUBIN TOTAL 0.4 mg/dL (0.2-1.0); BLOOD UREA NITROGEN,BUN 42 mg/dL (7-18); CARBON DIOXIDE,CO2 26 mEq/L (21-32); CHLORIDE,CL 92 mEq/L (98-107); CREATININE 1.3 mg/dL (0.55-1.02); ESTIMATED GFR 40 mL/min (>60); GLUCOSE RANDOM 112 mg/dL (70-99); PROTEIN TOTAL,TP 8.1 g/dl (6.4-8.2); SODIUM,NA 126 mEq/L (136-145)
[2025-06-16 11:45] LABS: POTASSIUM,K 6.1 mEq/L (3.5-5.1)
[2025-06-16 11:46] LABS: CREATINE KINASE,CK 28.0 U/L (26-192); TROPONIN I HIGH SENSITIVITY 12.0 pg/mL (<=51); TSH 3.182 uIU/mL (0.358-3.74)
[2025-06-16] MEDS: Sodium Chloride 0.9% 10 ML Syringe FLUSH PRN (12:01)
[2025-06-16] MEDS: Iopamidol 612 MG/ML 100 ML Bottle IVPUSH ONE (12:01)
[2025-06-16] MEDS: 50% Dextrose in Water 50 ML Syringe IVPUSH ONE ×2 (16:18→21:22)
[2025-06-16] MEDS: Insulin Regular, Human 100 Units/ML 10 ML Vial IV ONE ×2 (16:19→21:22)
[2025-06-16] MEDS: Furosemide 40 MG/4 ML VIAL IVPUSH ONE (16:22)
[2025-06-16 17:43] LABS: APPEARANCE,URINE TURBID (Clear); GLUCOSE,URINE 2+ (Negative); OCCULT BLOOD,URINE 3+ (Negative)
[2025-06-16 18:12] LABS: EPITHELIAL CELLS,URINE 0-5 /hpf (0-5)
[2025-06-16 18:24] LABS: BLOOD UREA NITROGEN,BUN 36 mg/dL (7-18); CARBON DIOXIDE,CO2 21 mEq/L (21-32); CHLORIDE,CL 94 mEq/L (98-107); CREATININE 1.2 mg/dL (0.55-1.02); ESTIMATED GFR 44 mL/min (>60); GLUCOSE RANDOM 108 mg/dL (70-99); SODIUM,NA 126 mEq/L (136-145)
[2025-06-16 18:32] LABS: POTASSIUM,K 5.7 mEq/L (3.5-5.1)
[2025-06-16 21:58] LABS: INR 2.65
[2025-06-17 05:52] LABS: A/G RATIO 0.4 (1-2); ALANINE AMINOTRANSFERASE,ALT 19.0 U/L (14-59); ASPARTATE AMNIOTRANSFERASE,AST 19.0 U/L (15-37); BILIRUBIN TOTAL 0.5 mg/dL (0.2-1.0); BLOOD UREA NITROGEN,BUN 32.0 mg/dL (7-18); CARBON DIOXIDE,CO2 27.0 mEq/L (21-32); CHLORIDE,CL 97.0 mEq/L (98-107); CREATININE 0.9 mg/dL (0.55-1.02); EST CRCL DRUG DOSING (CG) 34.17 mL/min; ESTIMATED GFR 61.0 mL/min (>60); GLUCOSE RANDOM 77.0 mg/dL (70-99); POTASSIUM,K 4.0 mEq/L (3.5-5.1); PROTEIN TOTAL,TP 6.7 g/dl (6.4-8.2); SODIUM,NA 132.0 mEq/L (136-145)
[2025-06-17 10:39] LABS: BASOPHILS ABSOLUTE AUTO 0.1 K/mm3 (0.0-0.2); BASOPHILS PERCENT AUTO 0.5 % (0.0-1.0); EOSINOPHILS ABSOLUTE AUTO 0.2 K/mm3 (0.0-0.4); EOSINOPHILS PERCENT AUTO 1.6 % (0.0-6.0); IMMATURE GRAN ABSOLUTE AUTO 0.27 K/mm3 (0.00-0.05); IMMATURE GRAN PERCENT AUTO 2.1 % (0.0-0.4); LYMPHOCYTES ABSOLUTE AUTO 3.3 K/mm3 (1.0-4.8); LYMPHOCYTES PERCENT AUTO 25.5 % (24.0-44.0); MEAN PLATELET VOLUME 10.9 fl (9.4-12.3); MONOCYTES ABSOLUTE AUTO 1.2 K/mm3 (0.0-0.8); MONOCYTES PERCENT AUTO 9.4 % (0.0-8.0); NEUTROPHILS ABSOLUTE AUTO 7.7 K/mm3 (1.8-7.7); NEUTROPHILS PERCENT AUTO 60.9 % (41.0-71.0); NRBC ABSOLUTE 0.00 (0.00-0.02); NRBC PERCENT 0.0 % (0.0-0.2); PLATELET COUNT,PLT 227 K/mm3 (150-400); RED BLOOD CELL COUNT 4.12 M/mm3 (4.10-5.30); WHITE BLOOD CELL COUNT,WBC 12.74 K/mm3 (3.9-11.3)
[2025-06-17 10:47] LABS: INR 1.34
[2025-06-17] MEDS: fentaNYL 25 MCG/HR Transdermal Patch TOP SCH (19:59)
[2025-06-17] MEDS: Warfarin** 1 MG TABLET PO SCH (20:01)
[2025-06-17] MEDS ORDERED: Naloxone 0.4 MG/ML SDV IVPUSH PRN (20:15)
[2025-06-18 05:54] LABS: INR 1.22
[2025-06-18 05:55] LABS: A/G RATIO 0.4 (1-2); ALANINE AMINOTRANSFERASE,ALT 16.0 U/L (14-59); ASPARTATE AMNIOTRANSFERASE,AST 18.0 U/L (15-37); BILIRUBIN TOTAL 0.4 mg/dL (0.2-1.0); BLOOD UREA NITROGEN,BUN 20.0 mg/dL (7-18); CARBON DIOXIDE,CO2 22.0 mEq/L (21-32); CHLORIDE,CL 101.0 mEq/L (98-107); CREATININE 0.8 mg/dL (0.55-1.02); EST CRCL DRUG DOSING (CG) 38.44 mL/min; ESTIMATED GFR 71.0 mL/min (>60); GLUCOSE RANDOM 80.0 mg/dL (70-99); POTASSIUM,K 3.9 mEq/L (3.5-5.1); PROTEIN TOTAL,TP 6.4 g/dl (6.4-8.2); SODIUM,NA 133.0 mEq/L (136-145)
[2025-06-18 06:31] LABS: BASOPHILS ABSOLUTE AUTO 0.1 K/mm3 (0.0-0.2); BASOPHILS PERCENT AUTO 0.7 % (0.0-1.0); EOSINOPHILS ABSOLUTE AUTO 0.2 K/mm3 (0.0-0.4); EOSINOPHILS PERCENT AUTO 1.6 % (0.0-6.0); IMMATURE GRAN ABSOLUTE AUTO 0.35 K/mm3 (0.00-0.05); IMMATURE GRAN PERCENT AUTO 3.0 % (0.0-0.4); LYMPHOCYTES ABSOLUTE AUTO 3.1 K/mm3 (1.0-4.8); LYMPHOCYTES PERCENT AUTO 26.6 % (24.0-44.0); MEAN PLATELET VOLUME 11.2 fl (9.4-12.3); MONOCYTES ABSOLUTE AUTO 1.2 K/mm3 (0.0-0.8); MONOCYTES PERCENT AUTO 10.1 % (0.0-8.0); NEUTROPHILS ABSOLUTE AUTO 6.7 K/mm3 (1.8-7.7); NEUTROPHILS PERCENT AUTO 58.0 % (41.0-71.0); NRBC ABSOLUTE 0.02 (0.00-0.02); NRBC PERCENT 0.2 % (0.0-0.2); PLATELET COUNT,PLT 240 K/mm3 (150-400); RED BLOOD CELL COUNT 3.58 M/mm3 (4.10-5.30); WHITE BLOOD CELL COUNT,WBC 11.60 K/mm3 (3.9-11.3)
[2025-06-18] MEDS: Mirabegron 25 MG Tab Extended Release PO SCH (08:30)
[2025-06-18] MEDS: Ondansetron 4 MG/2 ML SDV IV PRN (10:12)
[2025-06-18] MEDS ORDERED: Ondansetron 4 MG/2 ML SDV IV PRN (11:03)
[2025-06-18] MEDS: LORazepam 2 MG/ML SDV IVPUSH PRN (11:17)
[2025-06-18] MEDS ORDERED: Warfarin** 1 MG TABLET PO SCH (18:00)
[2025-06-20] MEDS: fentaNYL 25 MCG/HR Transdermal Patch TRDERM SCH (09:08)
== END 2025-06-20 09:53 | DRG 91 ==
LOC: JD.ED 08:40 → JD.MS 17:05
PROVIDERS: ADMIT Family Medicine; ATTEND Family Medicine
DX: G92.8 Other toxic encephalopathy (principal); N17.9 Acute kidney failure, unspecified; N39.0 Urinary tract infection, site not specified; J18.9 Pneumonia, unspecified organism; F03.918 Unspecified dementia, unspecified severity, with other behavioral disturbance; Z51.5 Encounter for palliative care; Z66 Do not resuscitate; R31.0 Gross hematuria; E87.5 Hyperkalemia; E87.1 Hypo-osmolality and hyponatremia; M54.9 Dorsalgia, unspecified; G89.29 Other chronic pain; R79.1 Abnormal coagulation profile; I11.0 Hypertensive heart disease with heart failure; I50.9 Heart failure, unspecified; D64.9 Anemia, unspecified; E86.0 Dehydration; E87.6 Hypokalemia; E87.8 Other disorders of electrolyte and fluid balance, not elsewhere classified; K21.9 Gastro-esophageal reflux disease without esophagitis; E66.9 Obesity, unspecified; Z79.52 Long term (current) use of systemic steroids; E11.9 Type 2 diabetes mellitus without complications; E03.9 Hypothyroidism, unspecified; Z99.81 Dependence on supplemental oxygen; Z68.35 Body mass index [BMI] 35.0-35.9, adult; Z88.8 Allergy status to other drugs, medicaments and biological substances; Z79.4 Long term (current) use of insulin; Z79.01 Long term (current) use of anticoagulants; Z79.899 Other long term (current) drug therapy
CPT/HCPCS: 36415; 70450; 71045; 72125; 73620; 74177; 80053; 82550; 83605; 83690; 83735; 83880; 84443; 84484; 85025; 85610; 85730; 86850; 86900; 86901; 87040 ×2; 87428; 93005; C1758; J0696; J1271; J1815; J1938; J2470; J3010 ×2; J3430; J7030; Q9967; 80048; 81001; 82947; 84132; 85018; 86140; 87086; 87641; 93010; 93971-26-LT; 93971-LT; 94761; 96361; 96365; 96368; 96375; 96376; 97162-GP; 97166-GO; 97530-GO; 97530-GP; 99223; 99232; 99233; 99239; 99285; 99285-25; A9270-GY; J2060; J2270; J2405; J3490